=== PATIENT | male | born 1965 | race Caucasian/White ===

== ENCOUNTER 2019-10-28 10:31 | Emergency (ER) | payer OTHER ==
[~2019-10-28] VITALS: Ht 177.8 cm; Wt 99.8 kg
[2019-10-28 10:48] VITALS: Ht 177.8 cm; Wt 99.8 kg
[2019-10-28 11:04] VITALS: BP 118/93
== END 2019-10-28 11:04 | disposition other institution (70) ==
LOC: ED 10:31
DX: Z02.89 Encounter for other administrative examinations (principal)